=== PATIENT | male | born 1980 | race Caucasian/White ===

== ENCOUNTER 2024-02-17 20:39 | Inpatient (IN) | payer OTHER, SELFPAY ==
[2024-02-17 15:09] VITALS: BP 117/87; BMI 33.1
[2024-02-17 17:30] VITALS: BP 121/79
[2024-02-17 17:38] LABS: % Basophils 0.6 % (0-2); % Eosinophils 1.1 % (0-6); % Immature Granulocytes 0.8 % (0-0.5); % Lymphocytes 22.3 % (20.5-51.1); % Monocytes 12.8 % (1.7-9.3); % Neutrophils 62.4 % (42.2-75.2); Absolute Eosinophils 0.1 10^3/uL (0-0.7); Absolute Lymphocytes 1.2 10^3/uL (1.2-3.4); Absolute Monocytes 0.7 10^3/uL (0.1-0.6); Absolute Neutrophils 3.3 10^3/uL (1.4-6.5); Hematocrit 38.9 % (39.0-52.0); Hemoglobin 13.8 g/dL (13.0-18.0); Mean Corp Hgb Conc. 35.5 g/dL (33.0-37.0); Mean Corpuscular Hgb 31.1 pg (27.0-31.0); Mean Corpuscular Volume 87.6 fL (80.0-94.0); Mean Platelet Volume 9.3 fL (7.4-10.4); Nucleated Red Blood Cells % 0 % (-); Platelet Count 166 10^3/uL (130-400); Red Blood Cell Count 4.44 10^6/uL (4.70-6.10); Red Cell Dist. Width 13.4 % (11.5-14.5); White Blood Cell Count 5.3 10^3/uL (4.8-10.8)
[2024-02-17 17:58] LABS: ALT (SGPT) 81 U/L (0-50); AST (SGOT) 101 U/L (17-59); Albumin 3.8 g/dl (3.5-5.0); Alkaline Phosphatase 112 U/L (38-126); Blood Urea Nitrogen 22 mg/dl (9-20); Calcium 9.2 mg/dl (8.4-10.2); Carbon Dioxide 26 mmol/L (22-30); Chloride 101 mmol/L (98-107); Estimated Creatinine Clearance 112 ml/min; Glucose 114 mg/dl (70-99); Sodium 136 mmol/L (135-145); Total Bilirubin 0.6 mg/dl (0.2-1.3); Total Protein 6.7 g/dl (6.3-8.2); eGFR > 60.00
--- NOTE | 2024-02-17 17:59 | ED.SKININJ ---
HPI-Injury
<Jennifer Hancock [employer]LECT[employer]ICAL [employer] - Last Filed: 02/19/24 07:04>
General
Chief Complaint: Skin Problem
Source: patient
Exam Limitations: none
Time Seen by Provider: 02/17/24 17:26
Nursing documentation reviewed up to this point in time: agreed with
History of Present Illness-Injury
Initial Injury comments:
43-year-old male with no past medical history said he got a small scrape on his left combs 10 days ago. It has gradually gotten more swollen and red, he saw his PCP 5 days ago and started on Keflex 500 4 times daily and has had a total of 7 doses.
The area is getting worse. He denies fever or chills. He had an ultrasound through his PCP which was negative for DVT.
His PCP sent him here today for admission for IV antibiotics.
Past History
<Jennifer Hancock, ELECT[employer]ICAL [employer]OR - Last Filed: 02/19/24 07:04>
Past History
ED Past Medical History: None
ED Past Surgical History: Other (Hernia repair)
Social History
Tobacco: Non-smoker
Alcohol: None
Personal:
Living: with family
Employment: Employed
Review of Systems
<Jennifer Hancock, ELECT[employer]ICAL [employer]OR - Last Filed: 02/19/24 07:04>
Review of Systems
Allergies reviewed?: Yes
All Other Systems: ROS reviewed and negative except as documented in HPI and ROS
Constitutional: Denies fever or chills
Respiratory: Denies trouble breathing
Cardiac: Denies chest pain
ABD/GI: Denies abdominal pain or nausea
Skin: Reports other (redness, swelling LLE)
Neurological: Reports no symptoms
Phy Exam
<Jennifer Hancock, [employer]LECT[employer]ICAL [employer]OR - Last Filed: 02/19/24 07:04>
Physical Exam
Physical Exam:
GENERAL: No acute distress. A&Ox3.
CONSTITUTIONAL: Afebrile.
RESPIRATORY: Regular respirations, nonlabored, lungs clear.
CARDIOVASCULAR: Regular rate and rhythm, no murmurs, no rubs.
GI: Soft, nontender
MUSCULOSKELETAL: Moves with ease. Well perfused.
SKIN: Warm, dry, pink. Abrasions anterior left combs with surrounding smooth erythema to and including heel and entire anterior aspect of LLE, a separate area of erythema medal left thigh. +1-2 swelling compared to RLE. Distal n/v intact.
PSYCH: Normal mood and affect. Well kept, interactive and appropriate
NEUROLOGIC: Awake, alert and oriented. No focal neurological deficits
Course
<Jennifer Hancock [employer] - Last Filed: 02/19/24 07:04>
Orders/Labs/Results
Orders:
Orders
02/17/24 Breakfast
Regular
At Your Request: Full Participation
Does patient need a safe tray?: No
02/17/24 17:30
Complete Blood Count/With Diff Urgent
Comprehensive Metabolic Panel Urgent
02/17/24 19:16
Vancomycin [Vancocin] 2,000 mg 0.9% Sodium Chloride 500 ml [Nss] 500 ml IV NOW
02/17/24 19:54
Admit/Transfer Patient As Directed
Co-Sign Provider:
Level of Care: Inpatient admission
Assign to:: Medical/Surgical
Physician / Group: anton
Diagnosis: cellulitis
Reason for Hospitalization: cellulitis
Expected length of stay greater than two midnights?: Yes
ELOS- Estimated Length of Stay in days: 3
I certify the patient meets the requirements for IP care: Yes
Code Status As Directed
Resuscitation Status: Full Code
PRN Pain Medication Management As Directed
May give lesser potent ordered pain med per pt: Yes
preference::
Protocol:: Medication orders for pain may be administered in a
manner that supports deferring to patient preference
when the pt is:
- Requesting an ordered lesser potent pain medication.
Least to most potent pain medications are defined
as: acetaminophen < NSAID < tramadol < opioids
(morphine, oxycodone, hydromorphone).
- Requesting a lesser dose of the same medication IF
ORDERED.
- Requesting a less intrusive route of administration
if both routes are prescribed by the provider (PO <
IV).
02/17/24 20:00
VANCOMYCIN Pharmacy to Dose [VANCOCIN Pharmacy to Dose] 1 each Pharmacy To Prepare [Call Pharmacy To Prepare] 0 ml IV PER PROTOCOL
02/17/24 20:52
Ibuprofen [Motrin] 600 mg PO Q6HPRN PRN
02/17/24 20:52
Activity As Directed
Activity Level: Out of Bed-Early Mobility
Intake/ Output As Directed
Frequency: Per unit guidelines
Vital Signs As Directed
Frequency: Per unit guidelines
DX Deep Vein Thrombosis Video Routine
02/18/24 08:04
Basic Metabolic Panel IN AM
Complete Blood Count/No Diff IN AM
02/18/24 18:00
Enoxaparin Sodium [Lovenox] 40 mg SC QPM
02/19/24 06:00
Complete Blood Count/No Diff IN AM
02/20/24 06:00
Basic Metabolic Panel IN AM
Complete Blood Count/No Diff IN AM
02/21/24 06:00
Basic Metabolic Panel IN AM
Complete Blood Count/No Diff IN AM
02/22/24 06:00
Basic Metabolic Panel IN AM
Complete Blood Count/No Diff IN AM
Abnormal Lab Results
02/17/24
17:30
RBC 4.44 L 10^6/uL
(4.70-6.10)
Hct 38.9 L %
(39.0-52.0)
MCH 31.1 H pg
(27.0-31.0)
Absolute Monos (auto) 0.7 H 10^3/uL
(0.1-0.6)
Immature Gran % 0.8 H %
(0-0.5)
Monocytes % 12.8 H %
(1.7-9.3)
BUN 22 H mg/dl
(9-20)
Glucose 114 H mg/dl
(70-99)
AST 101 H U/L
(17-59)
ALT 81 H U/L
(0-50)
02/17/24 17:30
02/17/24 17:30
Vital Signs
Initial and Last Documented VS:
Initial Vital Signs
Temp Pulse Resp BP Pulse Ox
98.2 F 88 16 117/87 99
02/17/24 15:09 02/17/24 15:09 02/17/24 15:09 02/17/24 15:09 02/17/24 15:09
Last Documented Vital Signs
Temp Pulse Resp BP Pulse Ox
98.2 F 68 14 112/69 94
02/18/24 23:40 02/18/24 23:40 02/18/24 23:40 02/18/24 23:40 02/18/24 23:40
Samsonlt;Gibran Hunter DO - Last Filed: 02/17/24 18:48>
Orders/Labs/Results
Orders:
Orders
02/17/24 Breakfast
Regular
At Your Request: Full Participation
Does patient need a safe tray?: No
02/17/24 17:30
Complete Blood Count/With Diff Urgent
Comprehensive Metabolic Panel Urgent
02/17/24 19:16
Vancomycin [Vancocin] 2,000 mg 0.9% Sodium Chloride 500 ml [Nss] 500 ml IV NOW
02/17/24 19:54
Admit/Transfer Patient As Directed
Co-Sign Provider:
Level of Care: Inpatient admission
Assign to:: Medical/Surgical
Physician / Group: anton
Diagnosis: cellulitis
Reason for Hospitalization: cellulitis
Expected length of stay greater than two midnights?: Yes
ELOS- Estimated Length of Stay in days: 3
I certify the patient meets the requirements for IP care: Yes
Code Status As Directed
Resuscitation Status: Full Code
PRN Pain Medication Management As Directed
May give lesser potent ordered pain med per pt: Yes
preference::
Protocol:: Medication orders for pain may be administered in a
manner that supports deferring to patient preference
when the pt is:
- Requesting an ordered lesser potent pain medication.
Least to most potent pain medications are defined
as: acetaminophen < NSAID < tramadol < opioids
(morphine, oxycodone, hydromorphone).
- Requesting a lesser dose of the same medication IF
ORDERED.
- Requesting a less intrusive route of administration
if both routes are prescribed by the provider (PO <
IV).
02/17/24 20:00
VANCOMYCIN Pharmacy to Dose [VANCOCIN Pharmacy to Dose] 1 each Pharmacy To Prepare [Call Pharmacy To Prepare] 0 ml IV PER PROTOCOL
02/17/24 20:52
Ibuprofen [Motrin] 600 mg PO Q6HPRN PRN
02/17/24 20:52
Activity As Directed
Activity Level: Out of Bed-Early Mobility
Intake/ Output As Directed
Frequency: Per unit guidelines
Vital Signs As Directed
Frequency: Per unit guidelines
DX Deep Vein Thrombosis Video Routine
02/18/24 08:04
Basic Metabolic Panel IN AM
Complete Blood Count/No Diff IN AM
02/18/24 18:00
Enoxaparin Sodium [Lovenox] 40 mg SC QPM
02/19/24 06:00
Complete Blood Count/No Diff IN AM
02/20/24 06:00
Basic Metabolic Panel IN AM
Complete Blood Count/No Diff IN AM
02/21/24 06:00
Basic Metabolic Panel IN AM
Complete Blood Count/No Diff IN AM
02/22/24 06:00
Basic Metabolic Panel IN AM
Complete Blood Count/No Diff IN AM
Abnormal Lab Results
02/17/24
17:30
RBC 4.44 L 10^6/uL
(4.70-6.10)
Hct 38.9 L %
(39.0-52.0)
MCH 31.1 H pg
(27.0-31.0)
Absolute Monos (auto) 0.7 H 10^3/uL
(0.1-0.6)
Immature Gran % 0.8 H %
(0-0.5)
Monocytes % 12.8 H %
(1.7-9.3)
BUN 22 H mg/dl
(9-20)
Glucose 114 H mg/dl
(70-99)
AST 101 H U/L
(17-59)
ALT 81 H U/L
(0-50)
02/17/24 17:30
02/17/24 17:30
Vital Signs
Initial and Last Documented VS:
Initial Vital Signs
Temp Pulse Resp BP Pulse Ox
98.2 F 88 16 117/87 99
02/17/24 15:09 02/17/24 15:09 02/17/24 15:09 02/17/24 15:09 02/17/24 15:09
Last Documented Vital Signs
Temp Pulse Resp BP Pulse Ox
98.2 F 68 14 112/69 94
02/18/24 23:40 02/18/24 23:40 02/18/24 23:40 02/18/24 23:40 02/18/24 23:40
<Jennifer Hancock, ELECTRICAL [employer]OR - Last Filed: 02/19/24 07:04>
MDM/Problems Addressed
Differential Diagnosis Includes:
Cellulitis, failing out pt therapy
MDM/Problems Addressed:
43-year-old male with no past medical history said he got a small scrape on his left combs 10 days ago. It has gradually gotten more swollen and red, he saw his PCP 5 days ago and started on Keflex 500 4 times daily and has had a total of 7 doses.
The area is getting worse. He denies fever or chills. He had an ultrasound through his PCP which was negative for DVT.
His PCP sent him here today for admission for IV antibiotics.
Afebrile
CBC, CMP with no clinically significant abnormality mild elevations of AST/ALT
7:00 p.m.
Abrasions anterior left combs with surrounding smooth erythema to and including heel and entire anterior aspect of LLE, a separate area of erythema medal left thigh. +1-2 swelling compared to RLE.
Case discussed with Dr. Hunter who evaluated patient, we discussed possible trial of a different outpatient antibiotic but patient insists that he was sent here for admission for IV antibiotics.
Hospitalist notified of admission
<Jennifer Hancock ELECTRICAL CONTRACTOR - Last Filed: 02/19/24 07:04>
*Critical Care Note
Total Time (30-74mins, 75-104mins- exclusive of procedures): Not Applicable
ED Attending Note
<Jennifer Hancock, ELECTRICAL CONTRACTOR - Last Filed: 02/19/24 07:04>
-
Portions of this chart may have been created with voice recognition software.� Occasional wrong word or��sound alike� substitutions may have occurred due to the inherent limitations of voice recognition software.
<Gibran Hunter, - Last Filed: 02/17/24 18:48>
ED Attending Note
Patient seen and examined by attending physician: Yes
I performed the substantive portion of visit, reviewed & personally made and approve the management plan that is documented in note by myself or EMILY.: Yes
ED Attending Note:
I agree with Radha's note
Patient complaining of worsening pain, redness left lower extremity. Patient has been experiencing the symptoms for several days. He was seen by his primary care doctor and started on Keflex. Patient believes he developed an infection from a
small laceration on his leg. Despite taking Keflex for several doses the symptoms have worsened. Patient states he had a subjective fever but did not measure
General: Awake, Alert, Oriented X3. No acute distress.
Vitals: unremarkable
Head: Atraumatic
Eyes: Pupils equal, EOMI
Neuro: Focal
Skin: Warm, dry, no rash
Extremities: pulses equal b/l, mild swelling, erythema with some areas of darkness erythema/purplish which are larger than petechia but not palpable.
Rashes not systemic but is confined to the left lower extremity. Treat with Vanco, hospitalize for at least 24 hours to ensure improvement with IV Vanco
Discharge Plan
Departure
Patient Disposition: Admit
Date of Disposition: 02/17/24
Time of Disposition: 18:45
Admit to: Med/Surg
Presentation/result/management discussed w/ accepting MD/DO: Hospitalist
Condition: Good
Discharge Problem:
Cellulitis of left lower extremity
Interventions
Interventions:
*Risk Screen - Suicide Last Done: 02/17/24 15:09
*General Assessment Last Done: 02/17/24 17:24
*Neglect/Abuse Screening Last Done: 02/17/24 15:09
ED- Fall Risk Assessment Last Done: 02/17/24 20:43
*ED COVID-19 Vaccine History Last Done: 02/17/24 17:24
*Nursing Disposition Last Done: 02/17/24 20:43
ED-Skin Assessment Last Done: 02/17/24 17:25
Discharge Date and Time
Discharge Date/Time: 02/17/24 20:44
[2024-02-17] MEDS: VANCOCIN 540 MG IV (19:34)
--- NOTE | 2024-02-17 19:36 | HPS.HSE ---
Family Physician
-
Family Physician: * NONE
Chief Complaint
-
left LE cellulitis.
History of Present Illness
43-year-old male with no past medical history said he got a small scrape on his left combs 10 days ago while he was working in his yard. it has gradually gotten more swollen and red. he also noted redness on his left thigh. he saw his PCP 5 days
ago and started on Keflex 500 4 times daily and has had a total of 7 doses. The area is getting worse. He denies fever or chills. He had an ultrasound through his PCP which was negative for DVT. Patient denied headache, dizziness, syncopal
episode. Patient denied chest pain or short of breath. Patient denied abdominal pain, nausea, vomiting, diarrhea. Patient denies dysuria materia.
Patient received vancomycin in ER admitted for further management.
Medical History
Past Medical History
Past Medical History: Reports None
Past Surgical History: Reports None
Social History
Tobacco: Non-smoker
Alcohol: Occasional
Drug: None
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
Family History
Family History: Not pertinent
Allergies / Home Medications
Allergies reflects when Allergies were last updated in [email or web address].
Home Medications with original date entered in [email or web address]
Allergy/Medication List:
Allergies
Allergy/AdvReac Type Severity Reaction Status Date / Time
No Known Allergies Allergy Unverified 02/17/24 15:12
Home Medications
cephalexin 500 mg capsule 500 mg PO Q6H 02/17/24
Review of Systems
-
Constitutional: Reports No Symptoms
EENT: Reports No Symptoms
Respiratory: Reports No Symptoms
Cardiac: Reports No Symptoms
Abdomen/GI: Reports No Symptoms
: Reports No Symptoms
Musculoskeletal: Reports No Symptoms
Skin: Reports Other (Left lower extremities redness and swelling)
Neurological: Reports No Symptoms
Endocrine: Reports No Symptoms
Hematologic/Lymphatic: Reports No Symptoms
Psych: Reports No Symptoms
Physical Exam
Vital Signs
Vital Signs
Temp Pulse Resp BP Pulse Ox
98.2 F 75 17 121/79 96
02/17/24 15:09 02/17/24 17:30 02/17/24 17:30 02/17/24 17:30 02/17/24 17:30
Physical Exam
General: Well Developed, Well Nourished and No Apparent Distress
HEENT: NormoCephalic, Moist mucous membranes and Atraumatic
Respiratory: Clear
Cardiac: S1/S2 and Regular Rhythm; No Murmur or Rub
GI: Soft, Non Tender, Non Distended and Normal Bowel Sounds; No Organomegaly
Rectal: Deferred by Provider
Musculoskeletal: No Clubbing, No Cyanosis and No Edema
Skin: Rash and Other (Left lower extremities redness and swelling, left thigh redness)
Neuro: AO x 3 and Nonfocal/grossly intact
Psych: Calm
Laboratory Results
-
02/17/24 17:30
02/17/24 17:30
Laboratory Results
Total Bilirubin 0.6 mg/dl (0.2-1.3) 02/17/24 17:30
AST 101 U/L (17-59) H 02/17/24 17:30
ALT 81 U/L (0-50) H 02/17/24 17:30
Alkaline Phosphatase 112 U/L (38-126) 02/17/24 17:30
Data Reviewed
-
Lab Data: Labs Reviewed by me
Impression/Plan
-
# Left lower extremity cellulitis
-Failed outpatient therapy
-iv vanco continued
-motrin prn for fever
#Transaminitis unclear cause
-AST 101, ALT 81
-denied alcohol use
-denied abdominal pain, n,v,d
-trend LFT
#DVT prophylaxis
-lovenox
#CODE status
-full code
[2024-02-17 20:26] VITALS: BP 131/79
--- NOTE | 2024-02-17 20:44 | W.PN.UPDATE ---
Update Note
Progress Note Update
This is an addendum to the H&P written by [place] on 02/17/2024. Patient seen and examined independently with SIZE TESTER.
43-year-old male no past medical history presenting with cellulitis/lymphangitis of left lower extremity after scraping his left combs while outside on park bench not improving with Keflex. Vancomycin started.
Transaminitis on labs, could be secondary to fatty liver. Continue to monitor, outpatient follow-up.
[2024-02-17 20:53] VITALS: BMI 33.0
[2024-02-17 20:59] VITALS: BP 127/78
--- NOTE | 2024-02-17 21:17 | PHA.VAN.IN ---
Assessment
- Assessment
Renal Function: Unknown baseline
Concomitant Antimicrobials: NONE
- Previous Dosing Experience
Previous Regimen: NONE
AUC Dosing Plan
- Dosing Variables
Dosing Weight (kg): 110.3
Dosing CrCl (ml/min): 100
Vd coefficient (L/kg): 0.6
- Empiric Dosing
Initial / Loading Dose: 2GM
Maintenance Regimen: 1500MG IV Q12H
Estimated AUC (mcg*h/mL): 553
Estimated Peak (mcg*h/mL): 34.9
Estimated Trough (mcg/ml): 13.9
Estimated Half Life (H): 7.9
Pharmacokinetics Vancomycin I
- -
Patient Age: 43
Patient Sex: Male
Vancomycin Day #: 1
Indication: Skin And Soft Tissue (LEFT KEYS WOUND)
Requesting Provider: PEDRO
Height / Weight:
Height 6 ft
Actual Weight 110.28 kg
Pertinent Past Medical History: FAILED OUTPT TX WITH KEFLEX
- Vital Signs / Lab Results
Temp Pulse Resp BP Pulse Ox
98.8 F 76 12 127/78 99
02/17/24 20:59 02/17/24 20:59 02/17/24 20:59 02/17/24 20:59 02/17/24 20:59
Lab Results - Hematology
02/17/24
17:30
WBC 5.3
Lab Results - Chemistry
02/17/24
17:30
BUN 22 H
Creatinine 1.1
Estimated Creat Clear 112
Albumin 3.8
--- NOTE | 2024-02-17 22:42 | PTCARENOTE ---
Received pt from ED via stretcher. Pt only partially bared weight to LLE - stand and pivot to bed. AAOx3, VSS. Oriented to floor, call peterson within reach.
[2024-02-17 23:30] VITALS: BP 109/65
[2024-02-18] MEDS: VANCOCIN 300 ML IV (05:40)
[2024-02-18] MEDS: VANCOCIN 300 MG IV (05:40)
[2024-02-18 07:10] VITALS: BP 122/68
--- NOTE | 2024-02-18 07:53 | W.PN.HOSP.TC ---
Today's Communication/Plan
-
cont empiric IV cefipime
likely transition to PO abx in next 24-48H
Assessment / Plan
Assessment / Plan
Physical Exam
General: Well Developed, Well Nourished and No Apparent Distress
HEENT: NormoCephalic, Moist mucous membranes and Atraumatic
Respiratory: Clear
Cardiac: S1/S2 and Regular Rhythm; No Murmur or Rub
GI: Soft, Non Tender, Non Distended and Normal Bowel Sounds; No Organomegaly
Musculoskeletal: No Clubbing, No Cyanosis and No Edema
Skin: Left lower extremities redness and swelling appears significantly improved, significantly shrunken from the lines of demarcation.
Neuro: AO x 3 and Nonfocal/grossly intact
Psych: Calm
43M with no past medical history reported small scrape on his left combs 10 days ago while he was working in his yard. it gradually worsen, swollen and red spreading to his thigh. He saw his PCP 5 days ago and was started on Keflex 500 4 times
daily, received total of 7 doses. Ultrasound through his PCP which was negative for DVT.
# Left lower extremity cellulitis
-Failed outpatient therapy
-received empiric iv vanco discontinued with neg MRSA screen
-continuing empiric abx w/ cefipime
-motrin prn for fever
#Mild Transaminitis
monitor
#DVT prophylaxis
-lovenox
#CODE status
-full code
Anticipated Discharge: 24 - 48 hours
Subjective/Interval History
-
Date of Service: February 18, 2024
Seen and examined a bedside in no acute distress resting comfortably in bed. notes significant improvement in left lower extremity swelling erythema since start of IV abx. denies new acute issues at this time.
Objective Data
-
Labs:
Laboratory Results
02/18/24
06:00
WBC Pending
Hgb Pending
Hct Pending
Plt Count Pending
Sodium Pending
Potassium Pending
Chloride Pending
Carbon Dioxide Pending
BUN Pending
Creatinine Pending
Glucose Pending
Calcium Pending
Vital Signs:
Vital Signs
Temp Pulse Resp BP Pulse Ox
99.3 F 71 12 109/65 95
02/17/24 23:30 02/17/24 23:30 02/17/24 23:30 02/17/24 23:30 02/17/24 23:30
I&O
02/17/24 02/18/24 02/19/24
06:59 06:59 06:59
Intake Total 480 / 480
Balance 480 / 480
[2024-02-18 08:35] LABS: Hematocrit 36.9 % (39.0-52.0); Hemoglobin 12.8 g/dL (13.0-18.0); Mean Corp Hgb Conc. 34.7 g/dL (33.0-37.0); Mean Corpuscular Hgb 30.8 pg (27.0-31.0); Mean Corpuscular Volume 88.9 fL (80.0-94.0); Mean Platelet Volume 9.6 fL (7.4-10.4); Platelet Count 199 10^3/uL (130-400); Red Blood Cell Count 4.15 10^6/uL (4.70-6.10); Red Cell Dist. Width 13.7 % (11.5-14.5); White Blood Cell Count 5.2 10^3/uL (4.8-10.8)
[2024-02-18] MEDS: MAXIPIME 2000 MG IV ×3 (09:01→23:50)
[2024-02-18] MEDS: STERILE WATER FOR INJECTION 10 ML IV ×3 (09:01→23:51)
[2024-02-18 09:24] LABS: Blood Urea Nitrogen 15 mg/dl (9-20); Calcium 8.7 mg/dl (8.4-10.2); Carbon Dioxide 23 mmol/L (22-30); Chloride 104 mmol/L (98-107); Estimated Creatinine Clearance > 125 ml/min; Glucose 112 mg/dl (70-99); Potassium 3.8 mmol/L (3.5-5.1); Sodium 136 mmol/L (135-145); eGFR > 60.00
[2024-02-18 15:12] VITALS: BP 122/71
[2024-02-18] MEDS: LOVENOX 40 MG SC (18:07)
[2024-02-18 23:40] VITALS: BP 112/69
--- NOTE | 2024-02-19 07:06 | W.PN.HOSP.TC ---
Today's Communication/Plan
-
discharge
Assessment / Plan
Assessment / Plan
Physical Exam
General: Well Developed, Well Nourished and No Apparent Distress
HEENT: NormoCephalic, Moist mucous membranes and Atraumatic
Respiratory: Clear
Cardiac: S1/S2 and Regular Rhythm; No Murmur or Rub
GI: Soft, Non Tender, Non Distended and Normal Bowel Sounds; No Organomegaly
Musculoskeletal: No Clubbing, No Cyanosis and No Edema
Skin: Left lower extremities redness and swelling appears significantly improved, significantly shrunken from the lines of demarcation.
Neuro: AO x 3 and Nonfocal/grossly intact
Psych: Calm
43M with no past medical history reported small scrape on his left combs 10 days ago while he was working in his yard. it gradually worsen, swollen and red spreading to his thigh. He saw his PCP 5 days ago and was started on Keflex 500 4 times
daily, received total of 7 doses. Ultrasound through his PCP which was negative for DVT.
# Left lower extremity cellulitis
-Failed outpatient therapy
-received empiric iv vanco discontinued with neg MRSA screen
-continued empiric abx w/ cefipime transitioned to oral abx amoxicillin with clinical improvement
-motrin prn for fever (has not required)
#Mild Transaminitis
resolving
#DVT prophylaxis
-lovenox
#CODE status
-full code
Medically stable for discharge home with outpatient follow up recommendations.
Anticipated Discharge: Today
Subjective/Interval History
-
Date of Service: February 19, 2024
Seen and examined at bedside in no acute distress resting comfortably in bed. Denies new acute issues. Left leg swelling erythema continues to improve. Reports overall feeling well. Eager to go home
Objective Data
-
Labs:
Laboratory Results
02/19/24
06:00
WBC Pending
Hgb Pending
Hct Pending
Plt Count Pending
Sodium Pending
Potassium Pending
Chloride Pending
Carbon Dioxide Pending
BUN Pending
Creatinine Pending
Glucose Pending
Calcium Pending
Total Bilirubin Pending
AST Pending
ALT Pending
Alkaline Phosphatase Pending
Vital Signs:
Vital Signs
Temp Pulse Resp BP Pulse Ox
98.2 F 68 14 112/69 94
02/18/24 23:40 02/18/24 23:40 02/18/24 23:40 02/18/24 23:40 02/18/24 23:40
I&O
02/18/24 02/19/24 02/20/24
06:59 06:59 06:59
Intake Total 480 / 480 1320 / 1320
Balance 480 / 480 1320 / 1320
[2024-02-19 07:35] VITALS: BP 119/64
[2024-02-19 07:57] LABS: Hematocrit 38.6 % (39.0-52.0); Hemoglobin 13.2 g/dL (13.0-18.0); Mean Corp Hgb Conc. 34.2 g/dL (33.0-37.0); Mean Corpuscular Hgb 30.6 pg (27.0-31.0); Mean Corpuscular Volume 89.4 fL (80.0-94.0); Mean Platelet Volume 9.4 fL (7.4-10.4); Platelet Count 234 10^3/uL (130-400); Red Blood Cell Count 4.32 10^6/uL (4.70-6.10); White Blood Cell Count 5.4 10^3/uL (4.8-10.8)
[2024-02-19 08:42] LABS: ALT (SGPT) 74 U/L (0-50); AST (SGOT) 73 U/L (17-59); Albumin 3.5 g/dl (3.5-5.0); Alkaline Phosphatase 103 U/L (38-126); Blood Urea Nitrogen 13 mg/dl (9-20); Carbon Dioxide 28 mmol/L (22-30); Chloride 106 mmol/L (98-107); Direct Bilirubin 0.1 mg/dl (0.0-0.4); Estimated Creatinine Clearance > 125 ml/min; Glucose 103 mg/dl (70-99); Magnesium 2.3 mg/dl (1.6-2.3); Phosphorus 3.6 mg/dl (2.5-4.5); Potassium 4.4 mmol/L (3.5-5.1); Sodium 139 mmol/L (135-145); Total Bilirubin 0.5 mg/dl (0.2-1.3); Total Protein 6.2 g/dl (6.3-8.2); eGFR > 60.00
[2024-02-19] MEDS: MAXIPIME IV (09:16)
[2024-02-19] MEDS: STERILE WATER FOR INJECTION IV (09:16)
[2024-02-19] MEDS: AMOXIL 500 MG PO (09:20)
[2024-02-19 11:35] VITALS: BP 108/66
--- NOTE | 2024-02-19 13:45 | W.DCSUMMARY ---
Discharge Summary
Discharge Data
Date of Admission: 02/17/24
Date of Discharge: 02/19/24
-
Pending Results: No
Discharge Plan
-
Patient Disposition: Home (Routine Discharge)
Discharge Diagnosis/Procedures: Left Lower Extremity Cellulitis
Mild Transaminitis
Condition: Good
Diet: Regular
Activity: As tolerated
Driving Restrictions: As prior to admission
Bathing Restrictions: None
Blood Work: Please repeat CMP with primary care provider in 1 week of discharge.
Activity Restrictions/Additional Instructions:
Please follow up with primary care provider in 1 week of discharge.
Amoxicillin has been prescribed for 5 more days to complete antibiotic treatment for cellulitis.
Please take medications as prescribed/recommended and follow up with primary care provider and/or other healthcare provider involved in your care for further adjustments to your medication regimen as necessary.
Instructions: Cellulitis (Skin Infection), Adult (DC)
Referrals:
NONE,* [Family Provider] -
Prescriptions:
New
amoxicillin 500 mg Capsule
500 mg PO Q8H 5 Days Qty: 15 0RF
Discontinued
cephalexin 500 mg capsule
500 mg PO Q6H
Discharge Orders:
Discharge Patient (As Directed); Ordered 02/19/24
Ordered By: Nasreen Velasco
Discharge Date and Time
Print Language: YORUBA
--- NOTE | 2024-02-19 13:55 | CM ---
KAMILA met with Benito who advised he lives with a friend in a large 2 story home. He is normally (I) amb and adls. Infection on his combs was causing pain and difficulty walking due to increased pain when standing.
Plan: Discharge to home with oral antibiotics to complete course. No additional needs identified.
== END 2024-02-19 15:14 | disposition home or self-care (01) | DRG 603 ==
LOC: 4 EAST ACU 20:39
PROVIDERS: Registered Nurse; ADMITTING PHYSICIAN Hospitalist; ATTENDING PHYSICIAN Internal Medicine; EMERGENCY PHYSICIAN Emergency Medicine
DX: L03.116 Cellulitis of left lower limb (principal); R74.01 Elevation of levels of liver transaminase levels
CPT/HCPCS: 80048; 80053; 82248; 83735; 84100; 85025; 85027; 87641; 96365; 99284